=== PATIENT | male | born 1970 | race Hispanic/Latino ===

== ENCOUNTER 2019-01-05 13:44 | Emergency (ER) | payer MEDICAID, OTHER ==
[2019-01-05] MEDS ORDERED: LIDOCAINE 5% TOPICAL PATCH TP ONE (14:06)
[2019-01-05] MEDS ORDERED: KETOROLAC TROMETHAMINE 60 MG/2 ML VIAL ONE (14:06)
== END 2019-01-05 14:34 | disposition home or self-care (01) ==
LOC: EDH 13:44
DX: M54.5 Low back pain (principal); G89.29 Other chronic pain; M25.512 Pain in left shoulder; Z98.890 Other specified postprocedural states; Z72.0 Tobacco use
CPT/HCPCS: 96372; 99283; J1885

== ENCOUNTER 2019-09-01 11:50 | Emergency (ER) | payer MEDICAID ==
[2019-09-01] MEDS ORDERED: LIDOCAINE HCL-MPF 1% 2ML VIAL ONE (13:38)
[2019-09-01] MEDS ORDERED: KETOROLAC TROMETHAMINE 60 MG/2 ML VIAL ONE (13:39)
[2019-09-01] MEDS ORDERED: ONDANSETRON ODT 4 MG TAB ONE (13:39)
[2019-09-01] MEDS ORDERED: CEFTRIAXONE SODIUM 1 GM ONE (13:39)
== END 2019-09-01 14:11 | disposition home or self-care (01) ==
LOC: EDH 11:50
DX: K04.7 Periapical abscess without sinus (principal); K02.9 Dental caries, unspecified; F41.9 Anxiety disorder, unspecified; Z72.0 Tobacco use
CPT/HCPCS: 96372 ×2; 99284; J0696; J1885; J3490

== ENCOUNTER 2021-09-04 21:32 | Emergency (ER) | payer MEDICAID ==
[~2021-09-04] VITALS: Ht 170.2 cm; Wt 65.8 kg
[2021-09-04 21:46] VITALS: BP 104/80
[2021-09-04] MEDS ORDERED: CLINDAMYCIN 150 MG CAP ONE (21:50)
[2021-09-04] MEDS ORDERED: ACETAMINOPHEN WITH CODEINE 1 TAB TAB ONE (21:51)
[2021-09-04] MEDS ORDERED: IBUP-1552 PO (21:51)
[2021-09-04] MEDS ORDERED: CLIN-141 PO (21:51)
[2021-09-04] MEDS ORDERED: CLINDAMYCIN 150 MG CAP PO ONE (22:00)
[2021-09-04] MEDS ORDERED: ACETAMINOPHEN WITH CODEINE 1 TAB TAB PO ONE (22:00)
== END 2021-09-04 22:07 | disposition home or self-care (01) ==
LOC: EDH 21:32
DX: K03.81 Cracked tooth (principal); K08.89 Other specified disorders of teeth and supporting structures; Z79.1 Long term (current) use of non-steroidal anti-inflammatories (NSAID)